=== PATIENT | male | born 2000 | race Two or more races ===

== ENCOUNTER → 2022-03-08 | Emergency (ER) | payer OTHER ==
[~2022-03-08] VITALS: Ht 170.2 cm; Wt 68.0 kg
== END | disposition designated cancer center or children's hospital (05) ==
LOC: EMR PED 10:16
DX: S61.210A Laceration without foreign body of right index finger without damage to nail, initial encounter (principal); S61.212A Laceration without foreign body of right middle finger without damage to nail, initial encounter; S61.214A Laceration without foreign body of right ring finger without damage to nail, initial encounter; W45.8XXA Other foreign body or object entering through skin, initial encounter; Y93.89 Activity, other specified; Y92.89 Other specified places as the place of occurrence of the external cause; Y99.8 Other external cause status; S62.622A Displaced fracture of middle phalanx of right middle finger, initial encounter for closed fracture; Z20.822 Contact with and (suspected) exposure to COVID-19